=== PATIENT | male | born 1960 | race Caucasian/White ===

== ENCOUNTER 2019-09-19 18:34 | Emergency (ER) | payer BC, SELFPAY ==
[2019-09-19 18:37] VITALS: BP 232/117; PULSE 109; RESP 16; TEMP 36.6; O2SAT 97
--- NOTE | 2019-09-19 18:50 | ED.GENADUL_ITS ---
Discharge Plan Disposition Patient Disposition: HOME Discharge Details Chief Complaint: Laceration Clinical Impression: Abrasion of face, Hypertension Primary Care Provider: Gary Montenegro ED Provider: Abdiel Huang Home Meds and New Rx's Prescriptions: Continued chlorthalidone 50 MG tablet 50 mg PO DAILY Qty: 90 RF: 3 simvastatin [Zocor] 40 MG tablet 40 mg PO DAILY Qty: 90 RF: 4 diltiazem HCl 300 MG capsule,extended release 24hr 300 mg PO DAILY Qty: 90 RF: 3 tadalafil [Cialis] 20 MG tablet 10 - 20 mg PO daily prn PRNQty: 30 RF: 1 ezetimibe [Zetia] 10 MG tablet 10 mg PO DAILY Qty: 90 RF: 3 ibuprofen 800 MG tablet 800 mg PO TID PRN PRNQty: 90 RF: 3 methotrexate sodium 2.5 MG tablet 2.5 mg PO on Sundays Qty: 5 RF: 0 metoprolol succinate [Toprol XL] 200 MG tablet extended release 24 hr 200 mg PO DAILY Qty: 90 RF: 3 losartan 100 mg tablet 100 mg PO DAILY Qty: 90 RF: 3 aspirin 325 MG tablet,delayed release (DR/EC) 325 mg PO DAILY Qty: 30 RF: 0 acetaminophen [Tylenol Extra Strength] 500 MG tablet 1,000 mg PO TID PRN PRNQty: 180 RF: 0 diazepam [Valium] 5 MG tablet 5 mg PO Q8H PRN (Reason: Pain) Qty: 12 RF: 0 Discharge Instructions Instructions: Abrasion (ED), Hypertension (ED) Additional Instructions: Your blood pressure is elevated today. Please follow-up with your primary care physician on Saturday. You may medication adjustments. Apply topical [id number] antibiotic ointment, Neosporin, to abrasion to prevent infection. Please contact your primary care physician to arrange follow-up. Return to the ER for any worsening or new concerning symptoms. Referrals: Gary Montenegro. [Primary Care Provider] - Medical Decision Making 59-year-old male with abrasion to right face. Last tetanus was 9 to 10 years ago. Plan to give tetanus booster. Plan to continue treatment with topical antibiotic ointment and monitor for signs of infection. Patient was encouraged to follow-up with his primary care physician. Patient has asymptomatic hypertension. Patient notes he has been taking his medication as prescribed. I encouraged him to take his nightly medication tonight and to follow-up with his primary care physician on Saturday. I explained that he may need dosing adjustment should elevated blood pressure persist. HPI General Mode of arrival: ambulatory . Date/Time Provider Initiated Documentation: 09/19/19 18:41 . Limitations to Documentation: no limitations . Information obtained by: patient . HPI Narrative: 59-year-old male here with abrasion to his right restorationist. Patient notes he had an ink on his right restorationist and applied some industrial soap GoJo and attempted to remove the anchor with a powered bath brush. The abrasive soap combined with the brush resulted in abrasion. This occurred earlier today. Abrasion is moderate. No modifiers. He has applied Neosporin ointment. Patient notes he has no chest pain, no shortness of breath. No abdominal pain. No dizziness. No headache. He is taking his antihypertensives as prescribed. Related Data Home Medications Medication Instructions Recorded Confirmed acetaminophen [Tylenol Extra 1,000 mg PO TID PRN PRN #180 12/12/16 09/19/19 Strength] tab-cap aspirin 325 mg PO DAILY #30 tabec 12/12/16 09/19/19 chlorthalidone 50 mg PO DAILY #90 tab-cap 08/27/17 09/19/19 diltiazem HCl 300 mg PO DAILY #90 tab-cap 08/27/17 09/19/19 simvastatin [Zocor] 40 mg PO DAILY #90 tab-cap 08/27/17 09/19/19 diazepam [Valium] 5 mg PO Q8H PRN #12 tab 09/07/17 09/19/19 ezetimibe [Zetia] 10 mg PO DAILY #90 tab-cap 11/22/17 09/19/19 ibuprofen 800 mg PO TID PRN PRN #90 tab 11/22/17 09/19/19 tadalafil [Cialis] 10 - 20 mg PO daily prn PRN #30 tab 11/22/17 09/19/19 methotrexate sodium 2.5 mg PO on Sundays #5 11/28/17 09/19/19 metoprolol succinate [Toprol XL] 200 mg PO DAILY #90 tab-cap 06/13/18 09/19/19 losartan 100 mg tablet 100 mg PO DAILY #90 tab-cap 09/14/18 09/19/19 Previous Rx's Medication Instructions Recorded acetaminophen [Tylenol Extra 1,000 mg PO TID PRN PRN #180 12/12/16 Strength] tab-cap aspirin 325 mg PO DAILY #30 tabec 12/12/16 chlorthalidone 50 mg PO DAILY #90 tab-cap 08/27/17 diltiazem HCl 300 mg PO DAILY #90 tab-cap 08/27/17 simvastatin [Zocor] 40 mg PO DAILY #90 tab-cap 08/27/17 diazepam [Valium] 5 mg PO Q8H PRN #12 tab 09/07/17 ezetimibe [Zetia] 10 mg PO DAILY #90 tab-cap 11/22/17 metoprolol succinate [Toprol XL] 200 mg PO DAILY #90 tab-cap 06/13/18 losartan 100 mg tablet 100 mg PO DAILY #90 tab-cap 09/14/18 Allergies Allergy/AdvReac Type Severity Reaction Status Date / Time hydrocodone [From Vicodin] AdvReac Intermediate Anxiety Unverified 09/19/19 18:40 attacks oxycodone AdvReac Intermediate Anxiety Unverified 09/19/19 18:40 attack lisinopril AdvReac Mild achey Unverified 09/19/19 18:40 narcotics AdvReac Intermediate anxiety Uncoded 09/19/19 18:40 General Stated Complaint: Laceration ADONIS: 5 Review of Systems All systems reviewed & are unremarkable except as noted in HPI and below Cardiovascular Cardiovascular: Denies chest pain Integumentary/Breasts Skin/Breast: Reports as per HPI PFSH Medical History Anxiety Chronic low back pain Congenital heart defect (Acute) Hypertension Rheumatoid arthritis (Chronic) Tobacco dependence syndrome Surgical History back surgery (01/12/16) Rotator Cuff Repair 12/11/[id number] Family History Mother No problems noted. Father Heart disease Hyperlipidemia Brother Heart disease S/P CABG x 4 Social History Smoking/Tobacco Use Status: Current-Occasional Alcohol Intake: current Alcohol Intake frequency: a few times a week Drug use: Never Do you feel safe at home: Yes Do you feel safe in your relationship?: Yes Exam Const General: cooperative and no acute distress HENMT Mouth: moist mucous membranes Eyes Conjunctivae: normal conjunctivae Sclera: normal sclerae EOM: EOM intact bilaterally Neck Neck: trachea midline and supple Resp Auscultation: clear to auscultation bilaterally, no rales, no rhonchi and no wheezes Cardio Rate: regular rate Rhythm: regular rhythm Heart Sounds: murmur systolic I/ GI Palpation: soft and nontender Skin General skin exam: no rashes or lesions noted Trauma: abrasion (rt restorationist superficial) Neuro General: alert, awake and tone normal Course Vital Signs Vital signs: Vital Signs Temperature 36.6 C 09/19/19 18:37 Pulse 109 H 09/19/19 18:37 Respiratory Rate 16 09/19/19 18:37 Blood Pressure 232/117 H 09/19/19 18:37 Pulse Oximetry 97 09/19/19 18:37 Temperature 36.6 C 09/19/19 18:37 Temperature Source Skin 09/19/19 18:37 Pulse 109 H 09/19/19 18:37 Respiratory Rate 16 09/19/19 18:37 Respiratory Effort Non-Labored 09/19/19 18:44 Blood Pressure 232/117 H 09/19/19 18:37 Pulse Oximetry 97 09/19/19 18:37 Pain Level 1 09/19/19 18:37
[2019-09-19 19:03] VITALS: BP 223/132
== END 2019-09-19 19:05 | disposition home or self-care (01) ==
PROVIDERS: Emergency Provider Student in an Organized Health Care Education/Training Program; PCP Family Medicine
DX: S00.81XA Abrasion of other part of head, initial encounter (principal); I10 Essential (primary) hypertension
CPT/HCPCS: 90471; 99283

== ENCOUNTER 2020-09-15 07:38 | Outpatient (CLI) | payer BC, SELFPAY ==
[2020-09-15 14:17] LABS: Hemoglobin A1C 4.9 % (<5.7)
[2020-09-15 15:13] LABS: Calculated LDL 167 mg/dL (<100); Cholesterol 252 mg/dL (<200); Estimated GFR 34.25 (mL/min/1.73m2); HDL Cholesterol 41 mg/dL (40-60); Potassium 3.5 mmol/L (3.5-5.1); Triglyceride 222 mg/dL (<150)
== END 2020-09-15 07:58 ==
PROVIDERS: PCP Family Medicine; Visit Provider Nurse Practitioner
DX: Z13.1 Encounter for screening for diabetes mellitus (principal); Z13.6 Encounter for screening for cardiovascular disorders
CPT/HCPCS: 36415; 80061; 82565; 83036; 84132

== ENCOUNTER 2020-10-03 02:36 | Outpatient (CLI) | payer BC, SELFPAY ==
[2020-10-05 05:07] LABS: Patient Race White; SARS-CoV-2 RNA Detected (Undetected); SARS-CoV-2 Specimen Source Nasal
== END 2020-10-03 02:56 ==
PROVIDERS: PCP Family Medicine; Visit Provider Family Medicine
DX: Z11.59 Encounter for screening for other viral diseases (principal)
CPT/HCPCS: U0003

== ENCOUNTER → 2020-11-14 01:01 | Outpatient (CLI) | payer BC, SELFPAY ==
--- NOTE | 2020-11-14 08:00 | DI.RAD_ITS ---
EXAM: XR LUMBAR SPINE COMPLETE CLINICAL HISTORY: low backpain,M54.9. TECHNIQUE: 2D digital imaging was performed. COMPARISON: CR LUMBAR SPINE COMPLETE from 07/01/2015 FINDINGS: Compared to 2015 there has been interval multilevel laminectomies with removal of posterior osseous e lements at the L2, L3, L4, and L5 levels, most probably for spinal canal stenosis treatment. On the present study there is advanced disc space narrowing at all levels with the exception relative sparing of L4-5 level which appears basically unchanged from 2015. There is posterior osteophytic r idging at T12-L1, L1-2, L2-3 and L3-4 levels, slightly more so than previous. Degenerative facet leighton nt changes are noted anterior listhesis of L5 upon S1 not associated with pars interarticularis defec ts is again noted, most probably on facet joint arthropathy basis. There is approximately 8 millimet ers anterior slippage of L5 upon S1 again noted. Calcification within the abdominal aorta and iliac arteries is again noted in this 55-year-old patien t IMPRESSION: Multilevel chronic advanced degenerative disc disease and degenerative changes. Interval decompressi on multilevel surgery when compared to 2015 images. No hardware evident. DATA REPOSITORY: RADIATION DOSE DELIVERED:
== END ==
PROVIDERS: PCP Family Medicine; Visit Provider Family Medicine
DX: M47.816 Spondylosis without myelopathy or radiculopathy, lumbar region (principal)
CPT/HCPCS: 72110

== ENCOUNTER 2020-12-09 21:13 | Outpatient (REF) | payer BC, SELFPAY ==
[2020-12-09 21:21] LABS: Anion Gap 10.3 mmol/L (3-11); BUN 24 mg/dL (7-18); CO2 27.7 mmol/L (21.0-32.0); CREATININE 1.7 mg/dL (0.70-1.30); Calcium 9.6 mg/dL (8.5-10.1); Chloride 101 mmol/L (98-107); Estimated GFR 41.32 (mL/min/1.73m2); Glucose 105 mg/dL (74-106); Potassium 3.9 mmol/L (3.5-5.1); Sodium 139 mmol/L (136-145)
== END 2020-12-09 21:14 | disposition home or self-care (01) ==
LOC: NCHCN 21:13
PROVIDERS: PCP Family Medicine; Visit Provider Family Medicine
DX: E87.1 Hypo-osmolality and hyponatremia (principal)
CPT/HCPCS: 80048

== ENCOUNTER 2021-05-19 04:44 | Outpatient (CLI) | payer BC, SELFPAY ==
[2021-05-19 16:22] LABS: BUN 21 mg/dL (7-18); CREATININE 1.9 mg/dL (0.70-1.30); Calcium 9.5 mg/dL (8.5-10.1); Chloride 103 mmol/L (98-107); Estimated GFR 36.22 (mL/min/1.73m2); Glucose 83 mg/dL (74-106); Potassium 3.9 mmol/L (3.5-5.1); Sodium 140 mmol/L (136-145); Uric Acid 6.6 mg/dL (3.5-7.2)
[2021-05-19 22:32] LABS: Calculated LDL 114 mg/dL (<100); Cholesterol 207 mg/dL (<200); HDL Cholesterol 39 mg/dL (40-60); Triglyceride 270 mg/dL (<150)
[2021-05-22 09:25] LABS: PSA, Screening 1.2 ng/mL (0.0-4.5)
== END 2021-05-19 04:45 | disposition home or self-care (01) ==
LOC: LBO 04:44
PROVIDERS: Emergency Medicine; PCP Family Medicine; Visit Provider Family Medicine
DX: I10 Essential (primary) hypertension (principal); E78.5 Hyperlipidemia, unspecified; M10.9 Gout, unspecified; Z12.5 Encounter for screening for malignant neoplasm of prostate
CPT/HCPCS: 36415; 80048; 80061; 84153; 84550

== ENCOUNTER 2021-06-26 00:25 | Outpatient (CLI) | payer BC, SELFPAY ==
--- NOTE | 2021-06-26 14:45 | DI.MRI_ITS ---
Exam(s) MR LUMBAR SPINE WO EXAM: MR LUMBAR SPINE WO CLINICAL HISTORY: SPINAL STENOSIS OF LUMBAR REGION, M48.061, MEHRDAD ANTERIOR THIGH PAIN, L1-2. TECHNIQUE: Multiplanar multisequence MRI of the Lumbar spine was performed. COMPARISON: CR XR LUMBAR SPINE COMPLETE from 11/14/2020 CR XR LUMBAR SPINE COMPLETE from 11/14/2020 MR MRI LUMBAR W/WO from 12/28/2020 MR MRI LUMBAR W/WO from 12/28/2020 FINDINGS: Since the outside MRI of December 2020 there has been interval fusion surgery at L1-2 level posterior fusion rods and bilateral intrapedicular screws at these 2 levels. Intrapedicular screws exhibit no rmal position relative to the superior endplates at both levels. No evidence of osteomyelitis. Conus medullaris is at lower L1 level. There is no evidence of conus mass nor subjacent clumping of intrathecal nerve roots to suggest arachnoiditis. The distal thecal sac appears unremarkable.There i s no evidence of Tarlov intrasacral cysts nor other significant findings within the sacral canal Bones:There are no fractures nor ominous osseous lesions in the lumbar vertebral bodies and visualize d sacrum. Benign-appearing bone lesion in posterior half L4 vertebral body is unchanged. Benign-chacorta earing bone lesion the anterior 0.5 L 3 vertebral body is also unchanged. With respect to the individual levels... T11-T12: Disc space narrowing. Broad annular bulging again noted. This indents the thecal sac. Als o significant bilateral foraminal stenosis evident at this level T12-L1: This is one level above the fusion. There is again noted advanced uniform disc space narrowi ng at this level. However, there is no significant disc herniation. Central canal dimensions are lo wer normal. No prominent foraminal stenosis. L1-2: This level is the level which has been fused the surgically since December 2020. The disc spac e at this level is again noted be significantly narrowed. There is broad annular bulging at this lev el. Previously present disc protrusion as mildly less evident with mild less compression of the thec al sac. Nevertheless, there is still an element of significant spinal canal stenosis at level (moder ate). There is right-sided neural foraminal stenosis at this level again noted. Milder foraminal st enosis on the left side again noted. Facet arthropathy. L2-3: This is one level below the fusion. There is advanced disc space narrowing at this level note d. Central canal dimensions are lower normal. No disc herniation evident. Significant bilateral fo raminal stenosis again noted. Facet arthropathy. L3-4: Advanced disc space narrowing on both sides of this disc space. Posterior bony ridging with an element of retrolisthesis L3 upon L4 again noted, unchanged.No significant disc herniation. Central canal dimensions normal limits mild bilateral foraminal stenosis. Facet degenerative changes L4-5: This level exhibits preserved disc height and signal. There is mild central subligamentous jane ular bulging. Central canal dimensions are within normal limits. Mild-moderate narrowing of the exi ting neural foramina bilaterally. Short AP dimensions the pedicles results in bilateral moderate spi nal canal stenosis, similar to previous. L5-S1: Advanced disc space narrowing again noted and unchanged mild anterolisthesis L5 upon S1, appro ximately 4 millimeters. This slippage is associated with increased AP dimension of the central canal . However, the lateral recesses are carried forward. The exiting nerve roots exhibits some mild imp ingement between the pseudo herniation of the annulus and the overlying L5 pedicles, similar to previ ous. Soft tissues: There is a cyst in the lateral cortex of the left kidney which measures 1.4 x 1.3 cm. IMPRESSION: 1. Compared to the prior MRI scan of December 2019 there has been interval fusion surgery at L1-2 lev el. There is mild slightly less central spinal canal stenosis at this level now evident although the re is still an element of significant canal stenosis at this level and there is significant right-sommer ed neural foraminal stenosis at this level with milder left-sided neural foraminal stenosis. 2. Other levels as described individually above which exhibit minimal change from the prior study. 3. The course of the intra pedicular screws on both sides at L1-2 level is satisfactory and with this screws exhibiting satisfactory position relative to the superior endplates of the vertebrae. DATA REPOSITORY:
== END 2021-06-26 00:45 ==
PROVIDERS: PCP Family Medicine; Visit Provider Orthopaedic Surgery
DX: M48.061 Spinal stenosis, lumbar region without neurogenic claudication (principal); Z96.7 Presence of other bone and tendon implants; M79.651 Pain in right thigh; M79.652 Pain in left thigh; M99.73 Connective tissue and disc stenosis of intervertebral foramina of lumbar region
CPT/HCPCS: 72148

== ENCOUNTER 2021-12-26 01:23 | Outpatient (CLI) | payer BC, SELFPAY ==
--- NOTE | 2021-12-26 06:30 | DI.NM_ITS ---
APPROVED REPORT Exam: Exercise Treadmill Patient Location: Out-Patient Room/Bed: Stress Nurse: Radha Lisa RN Ordering Provider:KAIT HARTLEY, Contact Number: [phone] BMI: 28.97 Baseline Rhythm: Sinus Rhythm Indications: ATYPICAL CHEST PAIN, HYPERTENSION Medical History Medical History: Atypical chest pain, Gout, HTN, Anxiety, Congenital heart defect, Tobacco dependence Cardiac Medications: Tadalafil, Simvastatin, Sildenafil, Metoprolol succinate, Losartan, Chlorthalido ne, Alprazolam, Allergies: Hydrocodone, Oxycodone, Lisinopril, Narcotics Cardiac Risk Factors: FHX of CAD, HTN, Hyperlipidemia, Smoking (current, occasional) Previous Cardiac Procedures: None Pretest Chest Pain Characteristics: No chest pain Exercise History: Sedentary Physical Disabilities: Hx of multiple back surgeries, occasional leg pain Lung Sounds: Clear to auscultation Heart Sounds: Regular Stress Test Details Test: , Exercise stress testing was performed using a Hunter protocol. Nuclear Acquisition: Rest Tc-99m/Stress Tc-99m 1 day Rest Isotope: Tc-99m Sestamibi. Dose: 11.0 Date: 12/26/2021 Injection Time: 0910 Stress Isotope: Tc-99m Sestamibi. Dose: 35.0 Date: 12/26/2021 Injection Time: 1032 HR Resting HR Supine: 64 bpm Max Heart Rate (APMHR): 159.828351 bpm Resting HR Standin bpm Target HR (85% APMHR): 135.311227 bpm Max HR Achieved: 148 bpm % of APMHR: 93.08 Recovery HR: 95 bpm HR response to stress: Normal HR response to stress Comment: Metoprolol succinate not held, last taken at 0430 this morning. BP Resting BP Supine: 122/74 mmHg Resting BP Standin/78 mmHg Max BP: 180/84 mmHg Recovery BP: 124/72 mmHg BP response to stress: Normal blood pressure response to stress. ECG Resting ECG: Sinus Rhythm Ectopy: None Stress ECG: Sinus Tachycardia ST Change: Horizontal/Upsloping ST depression Lead(s): inferior leads Stage: [address] Deviation: 2 mm Arrhythmia: PACs Recovery ECG: Sinus Rhythm Recovery ST Change: Horizontal/Downsloping ST depression Lead(s): inferior leads, V4, V5, V6 Recovery ST Deviation: 2 mm Recovery Arrhythmia: occasional PVC Clinical Reason for Termination: Fatigue, Dyspnea Stress Symptoms: Dyspnea, General Fatigue Exercise duration: 9 min39 sec Exercise capacity: 10.16 METs Orr Treadmill Score: -1 Rate Pressure Product: [id number] Stress ECG Conclusion 1. Resting electrocardiogram showed voltage for left ventricular hypertrophy 2. Patient exercised on the Hunter protocol and completed a workload of 10.16 METS, stopping due to fa tigue 3. Normal heart rate and blood pressure response to exercise. The patient achieved 92% of predicted heart rate for age 4. The electrocardiographic portion of the test was consistent with myocardial ischemia with approxim ately 2 mm of inferior and anterolateral ST depression 5. No significant dysrhythmias were noted 6. See MPI report Orr Treadmill Score is -1 which is Moderate risk. Stress Test Summary STAGE Time (mins) Speed (mph) Grade (%) HR BP SYMPTOMS METS Supine 64 122/74 Standing 68 128/78 1 3 1.7 10 95 1148/78 4.6 2 6 2.5 12 113 150/80 7 3 9 3.4 14 140 SpO2 97% 10.2 1 min recovery 121 162/72 SpO2 99% 3 min recovery 103 180/84 6 min recovery 96 158/74 9 min recovery 95 124/72 Hunter protocol modified prior to entering the 4th stage of exercise to maintain stage 3 settings in a n attempt to encourage continuation of exercise following tracer injection. MPI Conclusion Normal myocardial perfusion without evidence of ischemia or prior infarction Radiologist Interpretation Radiologist agrees with Shovel Loader Operator's Interpretation. Radiologist Interpretation by: Grey Paige MD Interpretation Date/Time: 12/26/2021 16:10:12
== END 2021-12-26 01:43 ==
LOC: DI 01:23
PROVIDERS: PCP Family Medicine; Visit Provider Family Medicine
DX: R07.89 Other chest pain (principal); I10 Essential (primary) hypertension
CPT/HCPCS: 78452; 93017

== ENCOUNTER 2023-01-07 15:53 | Outpatient (REF) | payer OTHER, SELFPAY ==
[2023-01-07 14:53] LABS: HCT 37.6 % (40.0-50.0); HGB 12.9 g/dL (13.5-17.5); MCH 34.2 pg (27.0-33.0); MCHC 34.3 % (32.0-36.0); MCV 100 fL (80-95); MPV 10.6 fL (8.0-11.0); Platelet Count 194 10^3/uL (130-400); RBC 3.77 10^6/uL (4.36-5.78); RDW 11.9 % (11.8-14.1); RDW-SD 42.8 fL; WBC 5.15 10^3/uL (4.4-10.8)
[2023-01-07 15:14] LABS: ALT 39 U/L (16-63); AST 28 U/L (15-37); Albumin 3.9 g/dL (3.4-5.0); Alkaline Phosphatase 89 U/L (46-116); Anion Gap 6.7 mmol/L (3-11); BUN 28 mg/dL (7-18); Bilirubin, Total 0.5 mg/dL (0.2-1.0); CO2 30.3 mmol/L (21.0-32.0); CREATININE 1.8 mg/dL (0.70-1.30); Calcium 10.1 mg/dL (8.5-10.1); Calculated LDL 101 mg/dL (<100); Chloride 103 mmol/L (98-107); Cholesterol 209 mg/dL (<200); Estimated GFR 42.03 (mL/min/1.73m2); Glucose 101 mg/dL (74-106); HDL Cholesterol 57 mg/dL (40-60); Potassium 4.4 mmol/L (3.5-5.1); Sodium 140 mmol/L (136-145); Total Protein 7.6 g/dL (6.4-8.2); Triglyceride 258 mg/dL (<150)
[2023-01-08 00:33] LABS: PSA, Screening 1.4 ng/mL (<=4.5)
== END 2023-01-07 15:54 | disposition home or self-care (01) ==
LOC: NCHCN 15:53
PROVIDERS: Visit Provider Physician Assistant
DX: I10 Essential (primary) hypertension (principal); Z12.5 Encounter for screening for malignant neoplasm of prostate
CPT/HCPCS: 80053; 80061; 84153; 85027

== ENCOUNTER 2023-05-03 15:01 | Outpatient (REF) | payer OTHER, SELFPAY ==
[2023-05-03 18:14] LABS: Anion Gap 10.4 mmol/L (3-11); BUN 35 mg/dL (7-18); CO2 26.6 mmol/L (21.0-32.0); Calcium 9.4 mg/dL (8.5-10.1); Chloride 102 mmol/L (98-107); Estimated GFR 36.81 (mL/min/1.73m2); Glucose 92 mg/dL (74-106); Potassium 4.3 mmol/L (3.5-5.1); Sodium 139 mmol/L (136-145)
== END 2023-05-03 15:02 | disposition home or self-care (01) ==
LOC: NCHCN 15:01
PROVIDERS: PCP Physician Assistant; Visit Provider Physician Assistant
DX: N28.9 Disorder of kidney and ureter, unspecified (principal)
CPT/HCPCS: 80048

== ENCOUNTER 2023-08-08 09:41 | Day surgery (SDC) | payer OTHER, SELFPAY ==
--- NOTE | 2023-08-07 20:05 | W.PM.DSUDISC ---
Date of service: 08/08/23 Time of Service: 12:08 Discharge Plan Disposition Patient Disposition: Home Condition: Good Discharge Details Reason For Visit: screeing colonoscopy Attending Provider: Salbador Woods Primary Care Provider: Ulises Butts Home Meds and New Rx's Prescriptions: Continued chlorthalidone 25 mg tablet 50 mg PO DAILY Qty: 180 3RF atorvastatin 40 mg tablet 40 mg PO DAILY gabapentin 100 mg capsule 100 mg PO DAILY alprazolam 0.5 mg tablet 0.5 mg PO DAILY PRN (Reason: Claustrophobia) Qty: 1 0RF Rx Instructions: Take 30 minutes before MRI metoprolol succinate [Toprol XL] 200 mg tablet extended release 24 hr 200 mg PO DAILY Qty: 90 3RF losartan 100 mg tablet 100 mg PO DAILY tadalafil [Cialis] 20 mg tablet 20 mg PO DAILY PRN (Reason: sexual activity) Rx Instructions: administer approximately 30min before sexual activity; do not use more than 1 dose per 24hrs Discontinued polyethylene glycol 3350 17 gram/dose powder 238 g PO ONCE Qty: 238 0RF Rx Instructions: take per colonoscopy instructions bisacodyl [Dulcolax (bisacodyl)] 5 mg tablet,delayed release (DR/EC) 5 mg PO ONCE Qty: 4 0RF Rx Instructions: take per colonoscopy instructions Discharge Instructions Instructions: Colorectal Polyps (GEN), Hemorrhoids (GEN) Additional Instructions: Kristine, we were able to finish your colonoscopy today without any difficulty. I did find a total of 3 polyps, and I removed these all completely. I will take a week or 2 for me to get the results of the polyp report, and I will be in touch at that point if I have any other changes or specific recommendations. Have attached some general information here regarding colon and rectal polyps. You do in fact have some internal hemorrhoids. Given that they are generally asymptomatic, and the fact that you will be driving this week, I do feel like the safest thing to do right now is leave them alone. Have also attached some information about typical hemorrhoid management. Certainly, if he has become very bothersome, we can deal with them in the future at any time. 1. If tolerated, consume a soft, low fiber diet for 1-2 days. 2. Do not drive, drink alcohol, operate machinery, make critical decisions, or do activities that require coordination or balance for 24 hours. 3. Because air was put into your colon during the procedure, expelling air from your rectum (passing gas or farting) is normal. 4. You may not have a bowel movement for 1-3 days because of the colonoscopy prep. This is normal. 5. Go directly to the emergency room if you notice any of the following: Develop chills (warm to touch), or if you have a thermometer and your temperature is above 101 Difficulty breathing or difficultly swallowing Persistent vomiting Severe abdominal pain, other than gas cramps Severe chest pain Black, tarry stools Any bleeding ? exceeding one tablespoon 6. Call your physician if the site where your intravenous was started becomes red, swollen, painful, and warm to touch. 7. Your physician has reviewed your pre-procedure medications. Please continue to take those medications as previously ordered. You will be given specific information/education regarding any changes to your medications before leaving. Activity:: Activity as Tolerated Diet:: As Tolerated Discharge Orders Discharge Orders: Discharge Order (Routine); Ordered 08/07/23 Ordered By: Salbador Woods DS: Diagnosis Discharge Diagnosis (1) Screen for colon cancer: Status: Acute Asessment and Plan: For follow-up on polypectomy results
--- NOTE | 2023-08-07 20:06 | COLE_ITS ---
Date of service: 08/08/23 Time of Service: 12:10 Colonoscopy Report Date of procedure: 08/08/23 Pre-op diagnosis general: screening colonoscopy Post-op diagnosis procedure note: other (Colon polyps, internal hemorrhoids) Procedure: colonoscopy with polypectomy Surgeon: Salbador Woods Anesthesia Type: General:No Airway Estimated blood loss (mL): 10 Pathology: other (Cecal polyp, colon polyp at 80 cm, colon polyp at 65 cm) Complications: None Disposition: same day Indications: Kristine is a 63 year old man who needs a screening colonoscopy Prep: Miralax/Dulcolax Procedure Start Time: 11:08 Procedure End Time: 11:54 Retraction Time: 35 Findings: Grade 2 internal hemorrhoids; 0.75 cm cecal polyp, 0.75 cm polyp at 80 cm, 0.5 cm polyp at 65 cm Procedure Description: After the induction of monitored anesthetic care, and with the patient in left lateral decubitus position, I began by performing an external anorectal exam.? Perineum and skin were normal, as was the anal verge.? There was no evidence of external hemorrhoids.? Next, I performed a digital rectal exam.? I did not appreciate any abnormal findings.? Next, I advanced a colonoscope into the rectal vault.? I performed retroflexion.? There are grade 2 internal hemor rhoids.? Using insufflation, I then advanced the colonoscope beyond the rectal folds and into the sigmoid colon before advancing towards the cecum.? The quality of the prep was adequate, although a fair amount of irrigation was required for full visualization.? The scope was noted to be in the cecum by identification of the ileocecal valve and appendiceal orifice.? Within the cecum was a 0.75 cm slightly fungated cecal polyp. It took several attempts with polypectomy, including repositioning, but ultimately using energized snare polypectomy, I was able to completely remove this. There was minimal bleeding. I then began withdrawing the colonoscope using repeated irrigation as necessary for full evaluation of the colonic mucosa. Around 80 cm from the anal verge I identified a 0.75 cm polyp. ?It appeared sessile in character. ?I was able to remove this with a snare polypectomy. ?I examined the site, and there was minimal bleeding. Similarly, there was another sessile polyp that was ap proximately 0.5 cm at 65 cm from the anal verge. I was also able to remove this with snare polypectomy. Once this was completed, I continued to withdraw the scope and examine the remainder of the colonic mucosa.?Once the scope was withdrawn to the level of the rectum, great care was taken to examine portions of the rectal folds.? Finally, the scope was withdrawn and the patient was brought to the same-day surgery recovery unit as the anesthetic wore off. ?The findings and instructions were shared with the patient prior to discharge.
[2023-08-08 09:50] VITALS: BP 183/92; PULSE 66; RESP 17; TEMP 36.3; O2SAT 100
[2023-08-08] MEDS: Lactated Ringers 1,000 ML 80 ML IV (10:06)
--- NOTE | 2023-08-08 10:50 | W.ANESPRE ---
General Info Date of Service Date Performed: 08/08/23 Height: 5 ft 7 in Weight: 77.2 kg Body Mass Index (BMI): 26.6 Surgical Procedure: Operation Date: 08/08/23 11:25 Proposed Procedure Side Surgeon p Colonoscopy Salbador Woods MD s Possible Hemorrhoid Banding Salbador Woods MD Meds Allergies and Home Medications Allergies Allergy/AdvReac Type Severity Reaction Status Date / Time hydrocodone [From Vicodin] AdvReac Intermediate Anxiety Verified 08/08/23 09:57 attacks oxycodone AdvReac Intermediate Anxiety Verified 08/08/23 09:57 attack lisinopril AdvReac Mild achey Verified 08/08/23 09:57 narcotics AdvReac Intermediate anxiety Uncoded 08/08/23 09:57 Home Medication Medication Instructions Recorded alprazolam 0.5 mg tablet 0.5 mg PO DAILY PRN Claustrophobia 06/09/21 #1 tab chlorthalidone 25 mg tablet 50 mg PO DAILY #180 tabs 02/27/22 metoprolol succinate 200 mg 200 mg PO DAILY #90 tab-caps 08/20/22 tablet,extended release 24 hr (Toprol XL) atorvastatin 40 mg tablet 40 mg PO DAILY 07/25/23 gabapentin 100 mg capsule 100 mg PO DAILY 07/25/23 losartan 100 mg tablet 100 mg PO DAILY 07/31/23 tadalafil 20 mg tablet (Cialis) 20 mg PO DAILY PRN sexual activity 08/08/23 Current Visit Medications: Current Medications Generic Name Dose Route Start Last Admin Trade Name Freq PRN Reason Stop Dose Admin Hyoscyamine Sulfate 0.125 mg 08/07/23 20:07 Hyoscyamine 0.125 Mg Sl/Oral/Chew SL 09/06/23 20:06 DIRECTED PRN Ringer's Solution 1,000 mls @ 80 mls/hr 08/08/23 06:00 08/08/23 10:06 IV 09/06/23 23:59 80 mls/hr INFUSION BEVERLY Administration IV Miscellaneous Supplies 1 each 08/08/23 06:00 Iv Access IV 09/06/23 23:59 DIRECTED BEVERLY Ondansetron HCl 4 mg 08/07/23 20:07 Ondansetron 4 Mg/2 Ml Vial IVP 09/06/23 20:06 Q4H PRN PRN Nausea / Vomiting Sodium Chloride 0 ml 08/08/23 06:00 Normal Saline Flush 10 Ml Syr IV 09/06/23 23:59 PRN PRN Sodium Chloride 0 ml 08/08/23 06:00 Normal Saline 10 Ml Vial IJ 09/06/23 23:59 DIRECTED PRN Sterile Water 0 ml 08/08/23 06:00 Water,Injection,Sterile 10 Ml Vial IJ 09/06/23 23:59 DIRECTED PRN PFSH Active Problems Active Problems: Problem Status Onset Code Screen for colon cancer Z12.11 Low back pain M54.5 Screening for prostate cancer Z12.5 Onychomycosis B35.1 Gout M10.9 Hand arthritis M19.049 Atypical chest pain R07.89 Claudication I73.9 Erectile dysfunction N52.9 Alcohol abuse F10.10 Hyperlipidemia E78.5 Stage 3b chronic kidney disease (CKD) N18.32 Bleeding hemorrhoids K64.9 Medical History Medical History JIGAR (acute kidney injury) (09/07/17) Anxiety Bankart lesion of left shoulder (12/05/16) Chronic low back pain Congenital heart defect Per pt.states its just a heart murmur states has had it since Dehydration (09/07/17) Rheumatoid arthritis Tear of left rotator cuff (11/14/16) Tobacco dependence syndrome Surgical History Surgical History back surgery (01/12/16) Rotator Cuff Repair [id number] Tobacco Smoking/Tobacco Use Status: Current-Occasional Tobacco Type: cigarettes Second hand exposure: Yes Alcohol Alcohol Intake: current Alcohol intake frequency: a few times a week Alcohol type: hard liquor Substance Use Substance use: Never Substance use type: does not use Vital Signs and Lab Results Vital Signs Most Recent Vital Signs in EMR: Most Recent Vital Signs Temp Pulse Resp BP Pulse Ox 36.3 C L 66 17 183/92 H 100 08/08/23 09:50 08/08/23 09:50 08/08/23 09:50 08/08/23 09:50 08/08/23 09:50 Lab Results Blood Type / Crossmatch: No Data to Display Complete Blood Count: No Data to Display Complete Metabolic Panel: No Data to Display Liver Function Panel: No Data to Display Coagulation Panel: No Data to Display Cardiac Panel: No Data to Display Arterial Blood Gas: No Data to Display Venous Blood Gas: No Data to Display Pancreas Panel: No Data to Display Thyroid Panel: No Data to Display Infectious Disease: No Data to Display Blood Cultures: No Data to Display Toxicology Panel: No Data to Display Imaging and Studies Imaging and Studies Study information below may be from another EMR and interpreted by another provider. Please see original notes in EMR for more complete details. Stress Test Summary: Stress ECG Conclusion 1. Resting electrocardiogram showed voltage for left ventricular hypertrophy 2. Patient exercised on the Hunter protocol and completed a workload of 10.16 METS, stopping due to fatigue 3. Normal heart rate and blood pressure response to exercise. The patient achieved 92% of predicted heart rate for age 4. The electrocardiographic portion of the test was consistent with myocardial ischemia with approximately 2 mm of inferior and anterolateral ST depression 5. No significant dysrhythmias were noted 6. See MPI report Orr Treadmill Score is -1 which is Moderate risk. 12/26/21 Anesthesia Assessment and Plan Anesthesia History Personal History: No History of Anesthesia Complications Family History: No Family History of Anesthesia Complications Exercise Tolerance Exercise Tolerance: Metabolic Equivalents>4 Pertinent Negatives Pertinent Negatives: No Symptoms of GERD, No Major Cardiovascular Symptoms or Complaints and No Major Pulmonary Symptoms or Complaints Cardiac & Pulmonary Exam Cardiac Exam: Normal S1/S2 Heart Sounds Pulmonary Exam: Clear Bilateral Breath Sounds Implantable Cardiac Device Does patient have a Pacemaker or an ICD?: No Airway Exam Known Difficult Airway: No Mallampati Class: 3 Mouth Opening: Normal (> 3cm) Thyromental Distance: Greater than 3 cm Neck Range of Motion: Full ROM Neck Circumference: Normal Teeth Condition: Normal Dentition ASA Classification ASA Score: ASA 2 Emergency Case?: No NPO Status NPO Status: NPO Clears >2 hours, Solids >8 hours Anesthesia Plan Resuscitation Status: Full Code Anesthesia Technique: General Anesthesia Airway Planned: Natural Airway Monitors Used: Standard Monitors
[2023-08-08 10:54] VITALS: BMI 26.6
--- NOTE | 2023-08-08 11:16 | BOWEL_PTH ---
PATIENT: Kristine Winters LOC: [facility] U#:[id number] AGE/SX: 63/M ROOM: RE08/08/[address]: Salbador Woods MD : [id number] BED: DIS: 08/08/2023 SPEC #: [id number] RECD: 08/08/23 12:44 STATUS: ABE REQ #: [id number] MEGHAN: 08/08/23 11:[address]: Salbador Woods DEPT: Surgical Specimen RECD BY: Kelly Jama ENTERED: 08/08/23 12:45 SP TYPE: Bowel OTHR DR: Ulises Butts Tissues: 1 - BIOPSY BOWEL 2 - BIOPSY BOWEL 3 - BIOPSY BOWEL Procedures: GROSS AND MICRO LEVEL 4 Comments: [id number]
[2023-08-08 12:00] VITALS: BP 113/73; PULSE 61; RESP 13; TEMP 36.5; O2SAT 97
[2023-08-08 12:25] VITALS: BP 178/92; PULSE 80; RESP 16; TEMP 36.6; O2SAT 97
--- NOTE | 2023-08-08 12:44 | W.ANESPOSTOP ---
Postoperative Evaluation Date, Time and Location Date Performed: 08/08/23 Time Performed: 12:32 Patient Location: Day Surgery Unit Vital Signs Most Recent Imported Vital Signs: Most Recent Vital Signs Temp Pulse Resp BP Pulse Ox 36.5 C 61 13 113/73 97 08/08/23 12:00 08/08/23 12:00 08/08/23 12:00 08/08/23 12:00 08/08/23 12:00 Pain Score Most Recent Pain Score: Most Recent Pain Score Pain Level 0 08/08/23 12:00 Assessment Mental Status: Awake (Alert & Oriented to Patient Baseline) Airway and Respiratory Function: Patent airway with normal (patient baseline) respiratory exam Cardiovascular Function: Hemodynamically Stable Hydration Status: Adequately Hydrated Nausea & Vomiting: No Nausea or Vomiting Pain: Pt. Denies Any Pain Peripheral Nerve Block: Patient did not receive a nerve block
== END 2023-08-08 12:35 | disposition home or self-care (01) ==
PROVIDERS: PCP Physician Assistant; Visit Provider Surgery
PROC: 0DJD8ZZ Inspection of Lower Intestinal Tract, Via Natural or Artificial Opening Endoscopic (ICD-10-PCS; CPT 45378; principal; 2023-08-08 11:15)
DX: Z12.11 Encounter for screening for malignant neoplasm of colon (principal); D12.0 Benign neoplasm of cecum; K64.1 Second degree hemorrhoids; D12.4 Benign neoplasm of descending colon
CPT/HCPCS: 45385; 88305; J2001; J2704

== ENCOUNTER 2023-10-30 20:41 | Outpatient (REF) | payer OTHER, SELFPAY ==
[2023-10-30 19:54] LABS: Anion Gap 9.1 mmol/L (3-11); BUN 42 mg/dL (7-18); CO2 26.9 mmol/L (21.0-32.0); CREATININE 2.2 mg/dL (0.70-1.30); Calcium 9.8 mg/dL (8.5-10.1); Chloride 102 mmol/L (98-107); Estimated GFR 32.83 (mL/min/1.73m2); Glucose 102 mg/dL (74-106); Potassium 3.8 mmol/L (3.5-5.1); Sodium 138 mmol/L (136-145)
== END 2023-10-30 20:42 | disposition home or self-care (01) ==
LOC: NCHCN 20:41
PROVIDERS: PCP Physician Assistant; Visit Provider Physician Assistant
DX: I10 Essential (primary) hypertension (principal)
CPT/HCPCS: 80048

== ENCOUNTER 2024-01-31 15:38 | Emergency (ER) | payer OTHER, SELFPAY ==
--- NOTE | 2024-01-31 15:30 | RT.EKG_ITS ---
APPROVED REPORT Exam: Resting ECG Reason for Exam: Hypertension Patient Location: E HR:59 bpm ECG Measurements Heart Rate 59 AXIS MD 174 P 48 QRSd 81 QRS 19 QT 381 T 37 QTc 377 Conclusion Sinus bradycardia...rate< 60 Consider left ventricular hypertrophy...(S V1+R V5/V6) >3.50mV
[2024-01-31 15:40] VITALS: PULSE 66; RESP 18; TEMP 36.6; O2SAT 100
[2024-01-31 15:43] VITALS: BP 262/122
[2024-01-31 15:48] VITALS: BP 262/122; PULSE 66; RESP 18; TEMP 36.6; O2SAT 100
[2024-01-31 16:30] LABS: Abs Immature Grans 0.02 10^3/uL (0.0-0.06); Absolute Basophil Count 0.05 10^3/uL (0.0-0.2); Absolute Eosinophil Count 0.25 10^3/uL (0.0-0.7); Absolute Lymphocyte Count 1.51 10^3/uL (1.2-3.4); Absolute Monocyte Count 0.63 10^3/uL (0.1-0.8); Absolute Neutrophil Count 2.81 10^3/uL (1.2-6.7); Basophils % 0.9; Eosinophils % 4.7; HCT 38.6 % (40.0-50.0); HGB 13.3 g/dL (13.5-17.5); Immature Grans % 0.4; Lymphocytes % 28.7; MCH 33.2 pg (27.0-33.0); MCHC 34.5 % (32.0-36.0); MCV 96 fL (80-95); MPV 9.7 fL (8.0-11.0); Neutrophils % 53.3; Platelet Count 181 10^3/uL (130-400); RBC 4.01 10^6/uL (4.36-5.78); RDW 11.6 % (11.8-14.1); RDW-SD 40.7 fL; WBC 5.27 10^3/uL (4.4-10.8)
[2024-01-31 16:31] LABS: Bilirubin Negative (Negative); Blood Negative (Negative); Clarity Clear (Clear); Glucose Negative (Negative); Ketones Negative (Negative); Leukocyte Esterase Negative (Negative); Nitrite Negative (Negative); Urobilinogen 0.2 mg/dL (Up to 0.2); pH 6.5 (5-8)
[2024-01-31 16:44] LABS: ALT 46 U/L (16-63); AST 43 U/L (15-37); Albumin 3.8 g/dL (3.4-5.0); Alkaline Phosphatase 81 U/L (46-116); Anion Gap 10.8 mmol/L (3-11); BUN 39 mg/dL (7-18); Bilirubin, Total 0.6 mg/dL (0.2-1.0); CO2 27.2 mmol/L (21.0-32.0); CREATININE 1.7 mg/dL (0.70-1.30); Calcium 9.4 mg/dL (8.5-10.1); Chloride 102 mmol/L (98-107); Estimated GFR 44.74 (mL/min/1.73m2); Glucose 89 mg/dL (74-106); Potassium 3.8 mmol/L (3.5-5.1); Sodium 140 mmol/L (136-145); Total Protein 7.5 g/dL (6.4-8.2)
[2024-01-31] MEDS: LORazepam 2 MG/ML VIAL 1 MG IVP (17:08)
--- NOTE | 2024-01-31 17:52 | ED.GENADUL_ITS ---
Discharge Plan Disposition Patient Disposition: Home Condition: Stable Discharge Details Clinical Impression: Elevated blood pressure reading Primary Care Provider: Ulises Butts ED Provider: Kelly Turcios Home Meds and New Rx's Prescriptions: Continued chlorthalidone 25 mg tablet 50 mg PO DAILY Qty: 180 3RF atorvastatin 40 mg tablet 40 mg PO DAILY gabapentin 100 mg capsule 100 mg PO DAILY alprazolam 0.5 mg tablet 0.5 mg PO DAILY PRN (Reason: Claustrophobia) Qty: 1 0RF Rx Instructions: Take 30 minutes before MRI metoprolol succinate [Toprol XL] 200 mg tablet extended release 24 hr 200 mg PO DAILY Qty: 90 3RF losartan 100 mg tablet 100 mg PO DAILY tadalafil [Cialis] 20 mg tablet 20 mg PO DAILY PRN (Reason: sexual activity) Rx Instructions: administer approximately 30min before sexual activity; do not use more than 1 dose per 24hrs Discharge Instructions Additional Instructions: Continue on your prescribed medications Follow-up with your doctor on Saturday for recheck of your blood pressure Watch your sodium and try to work on cutting down on alcohol consumption by 1 drink daily Stay away from the patches you are using for pain Return earlier should he have new or worsening complaints Referrals: Ulises Butts [Primary Care Provider] - 1 day Discharge Data Discharge Date/Time-TO BE ENTERED AT DEPARTURE: 01/31/24 18:27 HPI General Date/Time Provider Initiated Documentation: 01/31/24 15:54 . HPI Narrative: This 63-year-old male presents with elevated blood pressure at home. Denies any change in medications. Took all of his antihypertensives today. Did consume some salt per patient. Denies any symptoms associated with elevated blood pressure, specifically denies any chest pain, shortness of breath, headache, vision change. Patient denies any fever or chills. Denies any dizziness. Does consume approximately three 4 ounce glasses of hard alcohol daily, denies any risk of withdrawal or history of withdrawal. Related Data Home Medications Medication Instructions Recorded Confirmed alprazolam 0.5 mg tablet 0.5 mg PO DAILY PRN Claustrophobia 06/09/21 01/31/24 #1 tab chlorthalidone 25 mg tablet 50 mg (2 x 25 mg) PO DAILY #180 02/27/22 01/31/24 tabs metoprolol succinate 200 mg 200 mg PO DAILY #90 tab-caps 08/20/22 01/31/24 tablet,extended release 24 hr (Toprol XL) atorvastatin 40 mg tablet 40 mg PO DAILY 07/25/23 01/31/24 gabapentin 100 mg capsule 100 mg PO DAILY 07/25/23 01/31/24 losartan 100 mg tablet 100 mg PO DAILY 07/31/23 01/31/24 tadalafil 20 mg tablet (Cialis) 20 mg PO DAILY PRN sexual activity 08/08/23 01/31/24 Previous Rx's Medication Instructions Recorded alprazolam 0.5 mg tablet 0.5 mg PO DAILY PRN Claustrophobia 06/09/21 #1 tab chlorthalidone 25 mg tablet 50 mg (2 x 25 mg) PO DAILY #180 02/27/22 tabs metoprolol succinate 200 mg 200 mg PO DAILY #90 tab-caps 08/20/22 tablet,extended release 24 hr (Toprol XL) Allergies Allergy/AdvReac Type Severity Reaction Status Date / Time hydrocodone [From Vicodin] AdvReac Intermediate Anxiety Verified 01/31/24 15:43 attacks oxycodone AdvReac Intermediate Anxiety Verified 01/31/24 15:43 attack lisinopril AdvReac Mild achey Verified 01/31/24 15:43 narcotics AdvReac Intermediate anxiety Uncoded 01/31/24 15:43 General Stated Complaint: GenMedical ADONIS: 3 Course Vital Signs Vital signs: Vital Signs Temperature 36.6 C 01/31/24 15:40 Pulse 66 01/31/24 15:40 Respiratory Rate 18 01/31/24 15:40 Pulse Oximetry 100 01/31/24 15:40 Temperature 36.6 C 01/31/24 15:48 Temperature Source Skin 01/31/24 15:48 Pulse 66 01/31/24 15:48 Respiratory Rate 18 01/31/24 15:48 Respiratory Effort Normal 01/31/24 15:48 Respiratory Depth Normal 01/31/24 15:48 Respiratory Pattern Normal 01/31/24 15:48 Blood Pressure 262/122 H 01/31/24 15:48 Blood Pressure Position Sitting 01/31/24 15:40 Pulse Oximetry 100 01/31/24 15:48 Oxygen Delivery Method Room Air 01/31/24 15:48 Oxygen Flow Rate 0 01/31/24 15:48 Pain Level 0 01/31/24 15:48 Lab/Test Results Lab/Test Results: Laboratory Tests Range/Units 01/31/24 01/31/24 16:00 16:10 WBC Cancelled 5.27 RBC Cancelled 4.01 L Hgb Cancelled 13.3 L Hct Cancelled 38.6 L MCV Cancelled 96 H MCH Cancelled 33.2 H MCHC Cancelled 34.5 RDW Cancelled 11.6 L Plt Count Cancelled 181 MPV Cancelled 9.7 Immature Gran % Cancelled 0.4 Neutrophils % Cancelled 53.3 Band Neutrophils % Cancelled Lymphocytes % Cancelled 28.7 Atypical Lymphs % Cancelled Monocytes % Cancelled 12.0 Eosinophils % Cancelled 4.7 Basophils % Cancelled 0.9 Metamyelocytes % Cancelled Myelocytes % Cancelled Promyelocytes % Cancelled Other Cells % Cancelled Nucleated RBC % Cancelled 0.0 Absolute Neutrophils Cancelled 2.81 Absolute Lymphocytes Cancelled 1.51 Absolute Monocytes Cancelled 0.63 Absolute Eosinophils Cancelled 0.25 Absolute Basophils Cancelled 0.05 RBC Morphology Cancelled Polychromasia Cancelled Hypochromasia Cancelled Poikilocytosis Cancelled Basophilic Stippling Cancelled Anisocytosis Cancelled Microcytosis Cancelled Macrocytosis Cancelled Spherocytes Cancelled Tear Drop Cells Cancelled Ovalocytes Cancelled Stomatocytes Cancelled Delgado-Refton Bodies Cancelled Homero Cells/Echinocytes Cancelled Acanthocytes (Spur) Cancelled Schistocytes Cancelled Sodium Cancelled 140 Potassium Cancelled 3.8 Chloride Cancelled 102 Carbon Dioxide Cancelled 27.2 Anion Gap Cancelled 10.8 BUN Cancelled 39 H Creatinine Cancelled 1.7 H Est GFR (CKD-EPI 2020) Cancelled 44.74 Glucose Cancelled 89 Calcium Cancelled 9.4 Total Bilirubin Cancelled 0.6 AST Cancelled 43 H ALT Cancelled 46 Alkaline Phosphatase Cancelled 81 Total Protein Cancelled 7.5 Albumin Cancelled 3.8 Urine Color (Yellow) Yellow Urine Clarity (Clear) Clear Urine pH (5-8) 6.5 Ur Specific [place] (1.005-1.025) 1.020 Urine Protein (Neg-Trace) mg/dL Negative Urine Ketones (Negative) mg/dL Negative Urine Blood (Negative) Negative Urine Nitrite (Negative) Negative Urine Bilirubin (Negative) Negative Urine Urobilinogen (Up to 0.2) mg/dL 0.2 Ur Leukocyte Esterase (Negative) Negative Urine Glucose (Negative) mg/dL Negative Medical Decision Making 63-year-old gentleman presenting with elevated blood pressure today at home. States he checks his blood pressure intermittently but has been asymptomatic throughout the day, patient is alert and oriented, pupil equal round reactive to light and accommodation, cardiac rate rhythm regular, no abdominal tenderness appreciated, alert and oriented x 4, cranial nerves II through XII intact, ambulatory steady gait, lungs clear to auscultation bilaterally Diagnostic labs are actually improved from baseline, last creatinine was 2.2, 1.7 today Patient interestingly said he has been under a lot of stress and was given a milligram of Ativan with immediate improvement in his blood pressure, hesitant to change his antihypertensives at this time but 8 do think he needs urgent outpatient reassessment of his blood pressure on Saturday, he is placed on the list for follow-up to have this rechecked At this time patient's blood pressure 165/86, will plan to have him reevaluated by his primary care physician on Saturday Return precautions reviewed and patient expressed understanding Again this is an asymptomatic hypertensive patient that history of coronary artery disease or aneurysm who is safe to have gradual lowering of blood pressure in the outpatient setting Quality:SDOH Health Related Social Needs: No Data to Display PFSH All Active Problems (Updated 01/31/24 @ 17:47 by MILTON Chisholm) Elevated blood pressure reading (Acute) Sessile serrated polyp of colon (Acute ~08/08/23) x3 Screen for colon cancer (Acute) Low back pain (Acute) Screening for prostate cancer (Acute) Onychomycosis (Acute) Gout (Chronic) Hand arthritis (Acute) Atypical chest pain (Acute) Claudication (Acute) Erectile dysfunction (Acute) Alcohol abuse (Chronic) Hyperlipidemia (Acute) Stage 3b chronic kidney disease (CKD) (Acute) Bleeding hemorrhoids (Acute) Medical History (Updated 01/31/24 @ 17:47 by MILTON Chisholm) JIGAR (acute kidney injury) (09/07/17) Bankart lesion of left shoulder (12/05/16) Dehydration (09/07/17) Tear of left rotator cuff (11/14/16) Congenital heart defect Per pt.states its just a heart murmur states has had it since Rheumatoid arthritis Anxiety Chronic low back pain Tobacco dependence syndrome Surgical History (Updated 08/09/23 @ 09:27 by Allison Baker) History of colonoscopy (~08/2023) back surgery (01/12/16) Rotator Cuff Repair 12/11/[id number] Family History Mother No problems noted. Father Heart disease Hyperlipidemia Brother Heart disease S/P CABG x 4 Social History (Updated 05/19/21 @ 15:54 by Radha Singh) Smoking/Tobacco Use Status: Current-Occasional Tobacco Type: cigarettes Tobacco: How many years used: 35 Quit status: considering quitting Second Hand Exposure: Yes Smoking risk assessment performed?: Yes Alcohol Intake: current Alcohol Intake frequency: a few times a week Alcohol type: hard liquor Drug use: Never Substance use type: does not use Caregiver/Support person: No Household members: significant other Housing: house Communication Needs: None Do you need help understanding health information?: Never Pets and animals: Yes Pets and animals: cat(s) and dog(s) Sexually active: Yes Do you think of yourself as: straight/heterosexual Current gender identity: male What is your relationship status?: living with partner How often do you talk on the phone with friends or family?: three or more times per week How often do you get together with friends or relatives?: three or more times per week How often do you attend denominational or pentecostal services?: 1-3 times per year Do you belong to any clubs or organized social groups?: no Panel score (0-1 are the most socially isolated patients): 2 Special daryl needs: No Seatbelt use: always Helmet use: No Drive intox or ride w/intox driver salesman: No Do you feel safe at home: Yes Do you feel safe in your relationship?: Yes
--- NOTE | 2024-01-31 17:54 | NUR.NOTE ---
Nursing Note: PT needs follow up with PCP on Saturday for a repeat blood pressure screening. Valeria, ED
[2024-01-31 18:20] VITALS: BP 187/101
== END 2024-01-31 18:27 | disposition home or self-care (01) ==
PROVIDERS: Emergency Provider Physician Assistant; PCP Physician Assistant
DX: R03.0 Elevated blood-pressure reading, without diagnosis of hypertension (principal); R00.1 Bradycardia, unspecified; N18.32 Chronic kidney disease, stage 3b; F17.210 Nicotine dependence, cigarettes, uncomplicated; M06.9 Rheumatoid arthritis, unspecified
CPT/HCPCS: 36415; 80053; 93005; 96374; 99284; 81003; 85025; 93010; J2060

== ENCOUNTER 2024-04-08 09:29 | Outpatient (REF) | payer OTHER, SELFPAY ==
[2024-04-08 15:11] LABS: HCT 39.2 % (40.0-50.0); HGB 13.2 g/dL (13.5-17.5); MCH 33.4 pg (27.0-33.0); MCHC 33.7 % (32.0-36.0); MCV 99 fL (80-95); MPV 10.3 fL (8.0-11.0); Platelet Count 209 10^3/uL (130-400); RBC 3.95 10^6/uL (4.36-5.78); RDW-SD 43.5 fL; WBC 5.89 10^3/uL (4.4-10.8)
[2024-04-08 15:50] LABS: BUN 44 mg/dL (7-18); CREATININE 2.4 mg/dL (0.70-1.30); Calcium 9.3 mg/dL (8.5-10.1); Calculated LDL 101 mg/dL (<100); Chloride 104 mmol/L (98-107); Cholesterol 201 mg/dL (<200); Estimated GFR 29.58 (mL/min/1.73m2); Glucose 83 mg/dL (74-106); HDL Cholesterol 63 mg/dL (40-60); Potassium 4.9 mmol/L (3.5-5.1); Sodium 141 mmol/L (136-145); Triglyceride 185 mg/dL (<150); Vitamin D 25 Total 39.6 ng/mL (30-100)
[2024-04-08 22:48] LABS: Parathyroid Hormone,Intact 61 pg/mL (19-88)
[2024-04-08 22:50] LABS: PSA, Screening 1.6 ng/mL (<=4.5)
== END 2024-04-08 09:30 | disposition home or self-care (01) ==
LOC: NCHCN 09:29
PROVIDERS: PCP Physician Assistant; Visit Provider Physician Assistant
DX: N18.30 Chronic kidney disease, stage 3 unspecified (principal); I10 Essential (primary) hypertension; E78.5 Hyperlipidemia, unspecified; Z12.5 Encounter for screening for malignant neoplasm of prostate
CPT/HCPCS: 80048; 80061; 82306; 84153; 85027; 83970

== ENCOUNTER → 2024-05-11 02:31 | Outpatient (CLI) | payer OTHER, SELFPAY ==
--- NOTE | 2024-05-11 | DI.MRI_ITS ---
Exam(s) MR ABDOMEN WO/W EXAM: MR ABDOMEN WO/W CLINICAL HISTORY: Cyst of kidney, acquired, N28.1; f/u lesion on lt kidney seen on MRI at [facility] TECHNIQUE: Multiplanar multisequence MRI of the Abdomen was performed. CONTRAST MATERIAL: IV Contrast: 15 mL of Dotarem contrast administered. COMPARISON: CT CTA THORAX/ABDOMEN/PELVIS from 09/07/2017 MR MR LUMBAR SPINE WO from 06/26/2021 CT,NM,TMT NM MPI REST STRESS GRP from 12/26/[address] CHEST LUNG CANCER SCREEN from 06/21/2023 FINDINGS: Exam is limited by motion. Liver: There a tiny liver cysts. Pancreas: Unremarkable. Gallbladder and Bile Ducts: Unremarkable. Adrenals: Stable left adrenal adenoma. Unchanged from prior CT. Kidneys: Multiple tiny cysts are noted on the right kidney. Several tiny cysts are noted on the left kidney. There is a hyperdense cyst near the upper pole measuring 11 millimeters. This was present on the MRI of 2017 and appears unchanged. Spleen: Unremarkable normal size. Few tiny cysts are seen. Aorta: Unremarkable. Soft Tissues: Unremarkable. Bone: Rods in the lumbar spine. Lymph Nodes: Unremarkable. Bowel: No dilatation. Appendix normal. IMPRESSION: Lesion on left kidney is consistent with hyperdense cyst which is unchanged from 2020. No follow-up recommended. DATA REPOSITORY:
[2024-05-11] MEDS: Gadoterate meglumine 20 ML VIAL IVP (14:24)
[2024-05-11] MEDS: Normal Saline - Diluent 50 ML VIAL IJ (14:25)
== END ==
PROVIDERS: PCP Physician Assistant; Visit Provider Physician Assistant
DX: N28.1 Cyst of kidney, acquired (principal)
CPT/HCPCS: 74183

== ENCOUNTER 2024-08-25 16:04 | Outpatient (REF) | payer OTHER, SELFPAY ==
[2024-08-25 16:00] LABS: Anion Gap 11.8 mmol/L (3-11); BUN 42 mg/dL (7-18); CO2 23.2 mmol/L (21.0-32.0); CREATININE 2.4 mg/dL (0.70-1.30); Calcium 9.7 mg/dL (8.5-10.1); Chloride 108 mmol/L (98-107); Estimated GFR 29.39 (mL/min/1.73m2); Glucose 91 mg/dL (74-106); Potassium 4.6 mmol/L (3.5-5.1); Sodium 143 mmol/L (136-145)
== END 2024-08-25 16:05 | disposition home or self-care (01) ==
LOC: NCHCN 16:04
PROVIDERS: PCP Physician Assistant; Visit Provider Physician Assistant
DX: N28.1 Cyst of kidney, acquired (principal)
CPT/HCPCS: 80048

== ENCOUNTER 2024-08-26 12:48 | Outpatient (CLI) | payer OTHER, SELFPAY ==
--- NOTE | 2024-08-26 | DI.RAD_ITS ---
Exam(s) XR LUMBAR SPINE COMPLETE EXAM: XR LUMBAR SPINE COMPLETE CLINICAL HISTORY: M54.9 Dorsalgia,unspecified, s/p several surgeries w/fusions on lower back. TECHNIQUE: 2D digital imaging was performed. COMPARISON: CR XR LUMBAR SPINE COMPLETE from 11/14/2020 FINDINGS: Five views There has been interval surgery with posterior fusion rods now evident at L1-2 levels secured by bila teral intrapedicular screws at these 2 levels. There is also again noted absence of posterior osseou s elements below this level.. There is advanced disc space narrowing again noted all levels with the exception of relative sparing of L4-5 disc height. Also multilevel facet arthropathy. Suspect an e lement of spinal canal stenosis. Again noted is an element of anterolisthesis L5 upon S1. IMPRESSION: Multilevel findings as above. Interval L1-2 fusion surgery. DATA REPOSITORY: RADIATION DOSE DELIVERED:
== END 2024-08-26 13:08 ==
LOC: DI 12:49
PROVIDERS: PCP Physician Assistant; Visit Provider Physician Assistant
DX: M43.26 Fusion of spine, lumbar region (principal); Z98.890 Other specified postprocedural states
CPT/HCPCS: 72110

== ENCOUNTER 2024-09-15 01:40 | Outpatient (CLI) | payer OTHER, SELFPAY ==
--- NOTE | 2024-09-15 11:00 | DI.MRI_ITS ---
Exam(s) MR LUMBAR SPINE WO EXAM: MR LUMBAR SPINE WO CLINICAL HISTORY: Dorsalgia, M54.9; s/p several surgeries with fusions on lower back, slowly. TECHNIQUE: Multiplanar multisequence MRI of the Lumbar spine was performed. COMPARISON: MR MR LUMBAR SPINE WO from 06/26/2021 MR MR ABDOMEN WO/W from 05/11/2024 CR XR LUMBAR SPINE COMPLETE from 08/26/2024 FINDINGS: Bones: The last intervertebral disc space is designated the L5/S1 level for the numbering purpose of this ex amination. The vertebral body heights are well maintained. Alignment: Unremarkable. Posterior fusion hardware again noted at L1-2. Extensive laminectomy defects. Posterior bony fusion of the posterior elements at L4-5. Cord: The conus tip ends at the T12 level. It is of normal size and signal intensity. T12-L1: Severe loss of disc height. Endplate osteophytes. No focal disc herniation is present. Mil d bilateral neural foraminal narrowing. Findings stable from prior. L1-2:Severe loss of disc height. Prominent broad-based osteophytes. No focal disc herniation is p resent. Stable moderate central canal stenosis and bilateral neural foraminal narrowing, right greate r than left. L2-3:Severe loss of disc height and circumferential osteophytes. No focal disc herniation is present. No central spinal canal stenosis.Severe bilateral foraminal stenosis. L3-4: Severe loss of disc height and prominent broad-based disc osteophytes. Facet degenerative lucero es. No focal disc herniation is present. No central spinal canal stenosis.Severe bilateral neural f oraminal stenosis. L4-5: Loss of disc height posteriorly and endplate osteophytes mainly posteriorly. Facet degenerative changes. No focal disc herniation is present. Severe bilateral neural foraminal narrowing. Mild na rrowing of the transverse dimension of the central canal. Progression of findings since prior exam. L5-S1: Stable mild spondylolisthesis. Severe loss of disc height. Mild endplate osteophytes.No focal disc herniation is present. No central spinal canal stenosis. Moderate bilateral neural foraminal s tenosis. The visualized SI joints and sacrum are unremarkable. Soft tissues: The paraspinal soft tissues are unremarkable. IMPRESSION: Stable postsurgical and severe degenerative changes from T12-L1 through L3-4. L5-S1 level is also sta ble. Progression of degenerative changes at L4-5. No disc herniation at any level.. DATA REPOSITORY:
== END 2024-09-15 02:00 ==
LOC: DI 01:40
PROVIDERS: PCP Physician Assistant; Visit Provider Physician Assistant
DX: M51.35 Other intervertebral disc degeneration, thoracolumbar region (principal); Z98.890 Other specified postprocedural states
CPT/HCPCS: 72148

== ENCOUNTER 2024-10-14 13:38 | Outpatient (CLI) | payer OTHER, SELFPAY ==
--- NOTE | 2024-10-14 06:00 | DI.RAD_ITS ---
Exam(s) XR PAIN CLINIC SACRIOILIAC 2V EXAM: XR PAIN CLINIC SACRIOILIAC 2V CLINICAL HISTORY: Dx: Sacroiliac Joint Dysfunction. TECHNIQUE: Fluoroscopy was provided for the referring physician for guidance with performing pain cl inic injection procedure. COMPARISON: No exams were available for comparison FINDINGS: Please see procedure note for details. Fluoro time: 25.0 seconds RADIATION DOSE DELIVERED: Ka,r=7.72 mGy
[2024-10-14 13:47] VITALS: BP 106/67; PULSE 71; RESP 20; TEMP 36.7; O2SAT 99
--- NOTE | 2024-10-14 13:57 | PDOC.PAIN ---
Date of service: 10/14/24 Time of Service: 14:55 Pain Managment Procedure Note Procedure Note Procedure Note: ?Sacroiliac Joint Steroid Injection ? Location: ? Right SI Joint? Pre-procedure Diagnosis: Sacroiliitis, not elsewhere classified - M46.1 ? Post-procedure Diagnosis:? The same as above ? Sedation:? NONE ? Medication: Depo-Medrol 40 mg, bupivacaine 0.5% 1 mL, Omnipaque 0.25 mL per joint ? Estimated blood loss:? less than 2 cc ? Surgeon:? Guilherme Khalil MD ? COMMENT: THIS WILL BE BOTH DIAGNOSTIC AND THERAPEUTIC ? Procedure Detail:? The procedure and potential risks were explained to the patient and informed written consent was obtained. The patient was escorted to the procedure room and placed in the prone position. Pillows were utilized for proper positioning and comfort. Time out was performed in the procedure room with nursing staff confirming the patient's identity, procedure to be performed, allergies, and any blood thinning or anti-platelet medications. The patient's lumbosacral area was prepped with ChloraPrep and draped in a sterile fashion. Sterile technique was maintained throughout the procedure.? Sterile gloves were used, a face mask was worn, and new single dose vials of all medications were used with the top being swabbed with alcohol and given time to dry prior to withdrawal of medication. Lidocaine 1% was used to anesthetize the skin. With fluoroscopic guidance, a 22-gauge 3.5 spinal needle was advanced into the posteroinferior aspect of the Right SI joint . Confirmation of intra-articular position of the needle tip was obtained with injection of 0.25cc of Omnipaque 240 contrast which showed appropriate spread [within the joint].? Following negative aspiration, 40mg of methylprednisolone mixed with 1 mL of bupivacaine 0.5% was injected.? The needle was gently removed. ?The patient tolerated the procedure well and was transported to the recovery area for observation and discharge instructions.? Permanent images saved and recorded. Plan:? Follow up prn. PAIN PRE PROCEDURE 02/11 POST PROCEDURE 02/11 COMMENT: [0] % BETTER AFTER INJECTION
[2024-10-14 14:46] VITALS: O2SAT 99
[2024-10-14 14:50] VITALS: O2SAT 98
[2024-10-14] MEDS: methylPREDNISolone ACETATE 80 MG/ML VIAL IJ (14:55)
[2024-10-14] MEDS: Omnipaque 240 MG/ML 50 ML BTL IJ (14:55)
[2024-10-14] MEDS: Bupivacaine 0.5% Pres-Free 10 ML VIAL IJ (14:56)
[2024-10-14] MEDS: Nerve Block Tray 1 EACH MC (14:56)
== END 2024-10-14 13:39 | disposition home or self-care (01) ==
LOC: PC 13:38
PROVIDERS: PCP Physician Assistant; Visit Provider Anesthesiology Pain Medicine
DX: M46.1 Sacroiliitis, not elsewhere classified (principal)
CPT/HCPCS: 00123; 27096; 72200; J0665; J1010; Q9967

== ENCOUNTER 2025-03-02 15:17 | Outpatient (REF) | payer OTHER, SELFPAY ==
[2025-03-02 15:16] LABS: HCT 39.6 % (40.0-50.0); HGB 13.6 g/dL (13.5-17.5); MCH 33.5 pg (27.0-33.0); MCHC 34.3 % (32.0-36.0); MCV 98 fL (80-95); MPV 10.6 fL (8.0-11.0); Platelet Count 207 10^3/uL (130-400); RBC 4.06 10^6/uL (4.36-5.78); RDW 11.9 % (11.8-14.1); RDW-SD 42.9 fL; WBC 6.28 10^3/uL (4.4-10.8)
[2025-03-02 15:22] LABS: Anion Gap 8.6 mmol/L (3-11); BUN 38 mg/dL (7-18); CO2 27.4 mmol/L (21.0-32.0); CREATININE 1.9 mg/dL (0.70-1.30); Calcium 9.8 mg/dL (8.5-10.1); Chloride 106 mmol/L (98-107); Estimated GFR 38.91 (mL/min/1.73m2); Glucose 93 mg/dL (74-106); Potassium 5.3 mmol/L (3.5-5.1); Sodium 142 mmol/L (136-145)
== END 2025-03-02 15:18 | disposition home or self-care (01) ==
LOC: NCHCN 15:17
PROVIDERS: PCP Physician Assistant; Visit Provider Physician Assistant
DX: N28.9 Disorder of kidney and ureter, unspecified (principal)
CPT/HCPCS: 80048; 85027